=== PATIENT | female | born 1965 | race Caucasian/White ===

== ENCOUNTER 2020-05-24 13:02 | Emergency (ER) | payer BC ==
[~2020-05-24] VITALS: Ht 170.2 cm; Wt 65.8 kg
[2020-05-24 13:14] VITALS: BP 139/85
--- NOTE | 2020-05-24 14:00 | NUR ---
Very Anxious- Reassurance given/encouraged DBE and relaxation techniques Await MD evaluation
[2020-05-24] MEDS ORDERED: FAMOTIDINE (20 MG) 20 MG TABLET ONE (14:34)
[2020-05-24] MEDS ORDERED: predniSONE 20 MG TABLET ONE (14:34)
[2020-05-24] MEDS: predniSONE 20 MG TABLET PO ONE (14:38)
[2020-05-24] MEDS: FAMOTIDINE (20 MG) 20 MG TABLET PO ONE (14:38)
--- NOTE | 2020-05-24 15:17 | NUR ---
Patient discharged to home in stable condition. Written and verbal after care instructions given. Patient verbalizes understanding of instruction.
== END 2020-05-24 15:17 | disposition home or self-care (01) ==
LOC: ER 13:04
DX: H00.012 Hordeolum externum right lower eyelid (principal); T36.0X5A Adverse effect of penicillins, initial encounter; Y92.89 Other specified places as the place of occurrence of the external cause
CPT/HCPCS: 99283; J7512